=== PATIENT | male | born 1970 | race Caucasian/White ===

== ENCOUNTER 2017-12-30 01:01 | Emergency (ER) | payer BC ==
[2017-12-30] MEDS ORDERED: MORPHINE SULFATE 10 MG/ML SOL IV PRN (01:12)
[2017-12-30] MEDS ORDERED: HYDROMORPHONE 1 MG/ML SYRINGE IV ONE ×2 (01:12→04:15)
[2017-12-30] MEDS ORDERED: ASPIRIN 81 MG CHEWABLE CTB PO STA (01:12)
[2017-12-30] MEDS ORDERED: NITROGLYCERIN 0.4 MG TAB SL PRN (01:12)
[2017-12-30] MEDS ORDERED: SODIUM CHLORIDE 0.9% FLUSH 10 ML SOL IV PRN (01:12)
[2017-12-30] MEDS ORDERED: HYDROMORPHONE 1 MG/ML SYRINGE ONE ×3 (01:13→04:18)
[2017-12-30 01:20] VITALS: TEMP 97.1
[2017-12-30 01:36] LABS: BASOPHILS % (AUTO) 1 % (0-3); EOSINOPHILS % (AUTO) 1 % (0-9); HEMATOCRIT 44 % (39-53); HEMOGLOBIN 14.7 gm/dl (13.5-17.7); MEAN CORPUSCULAR HEMOGLOBIN 29.1 pg (27.0-32.0); MEAN CORPUSCULAR HGB CONC 33.5 gm/dl (32.0-36.0); MEAN CORPUSCULAR VOLUME 87 fL (80-100); MONOCYTES % (AUTO) 4.2 % (0-12); NEUTROPHILS % (AUTO) 91.5 % (37-80)
[2017-12-30] MEDS ORDERED: SODIUM CHLORIDE 0.9% 1000ML 1,000 ML IV ONE ×2 (01:51→03:56)
[2017-12-30 01:52] LABS: AMYLASE 33 IU/L (25-115); CREATINE KINASE 27 U/L (39-308); TROP I < 0.017 ng/ml (0.000-0.056)
[2017-12-30] MEDS ORDERED: POTASSIUM CHLORIDE 2 MEQ/ML SOL IV ONE ×2 (01:55→01:58)
[2017-12-30 02:05] LABS: ALBUMIN 3.4 gm/dl (3.4-5.0); BILIRUBIN,TOTAL 2.7 mg/dl (0.2-1.0); CARBON DIOXIDE 26.3 mEq/L (21-32); POTASSIUM 3.4 mMol/L (3.5-5.1); TOTAL PROTEIN 7.3 gm/dl (6.4-8.2)
[2017-12-30 02:06] LABS: CALCIUM 8.8 mg/dl (8.5-10.1); CREATININE 1.12 mg/dl (0.80-1.30)
[2017-12-30] MEDS ORDERED: HYDROMORPHONE 1 MG/ML SYRINGE IV PRN (02:32)
[2017-12-30] MEDS ORDERED: [UNRECOGNIZED DRUG - MIXTURE] IV SCH (02:45)
[2017-12-30] MEDS ORDERED: AMPICILLIN/SULBACTAM 3 GM PDS 3 GM in SODIUM CHLORIDE 0.9% 100 ML 100 ML IV SCH (03:15)
[2017-12-30] MEDS ORDERED: AMPICILLIN/SULBACTAM 3 GM PDS ONE (03:25)
[2017-12-30 04:32] VITALS: BP 155/91; PULSE 136; RESP 18; O2SAT 94
== END 2017-12-30 04:46 | disposition home or self-care (01) ==
LOC: ED 01:01
DX: R10.9 Unspecified abdominal pain (principal); R06.00 Dyspnea, unspecified; C25.9 Malignant neoplasm of pancreas, unspecified
CPT/HCPCS: 36415; 71045; 71275; 80053; 82150; 82550; 84484; 85025; 85378; 87040; 87077; 87186; 87205; 93005; 96365; 96366; 96374; 99284; 99285; J0295; J3480; Q9967; J1170

== ENCOUNTER 2018-02-01 02:09 | Emergency (ER) | payer BC ==
[2018-02-01 02:25] VITALS: TEMP 96.9
[2018-02-01] MEDS ORDERED: SODIUM CHLORIDE 0.9% 1000ML 1,000 ML IV ONE (02:34)
[2018-02-01] MEDS ORDERED: SODIUM CHLORIDE 0.9% FLUSH 10 ML SOL IV PRN (02:54)
[2018-02-01 02:56] LABS: HEMATOCRIT 38 % (39-53); HEMOGLOBIN 12.7 gm/dl (13.5-17.7); MEAN CORPUSCULAR HGB CONC 33.8 gm/dl (32.0-36.0); MEAN CORPUSCULAR VOLUME 83 fL (80-100)
[2018-02-01 03:13] LABS: ALBUMIN 3.1 gm/dl (3.4-5.0); BILIRUBIN,TOTAL 0.8 mg/dl (0.2-1.0); CALCIUM 7.9 mg/dl (8.5-10.1); CARBON DIOXIDE 27.1 mEq/L (21-32); CREATININE 1.15 mg/dl (0.80-1.30); POTASSIUM 3.8 mMol/L (3.5-5.1); TOTAL PROTEIN 6.9 gm/dl (6.4-8.2)
[2018-02-01 03:14] LABS: INR 1.16 (0.86-1.12)
[2018-02-01 03:19] LABS: BAND NEUTROPHILS % (MANUAL) 24 %; BASOPHILS % (MANUAL) 0 % (0-3); EOSINOPHILS % (MANUAL) 0 % (0-9); LYMPHOCYTES % (MANUAL) 21 % (10-50); MONOCYTES % (MANUAL) 5 % (0-12); NEUTROPHILS % (MANUAL) 50 % (37-80); NORMAL RBCS PRESENT
[2018-02-01] MEDS ORDERED: HEPARIN SODIUM 100 U/ML SOL IV ONE (04:10)
[2018-02-01 04:33] VITALS: BP 131/86; PULSE 74; RESP 16; O2SAT 99
[2018-02-01] MEDS ORDERED: HEPARIN 500 Unit PRE-FILL 100 U/ML SOL IV PRN (04:34)
== END 2018-02-01 04:25 | disposition home or self-care (01) ==
LOC: ED 02:09
DX: K92.2 Gastrointestinal hemorrhage, unspecified (principal)
CPT/HCPCS: 36591; 80053; 82272; 85007; 85027; 85610; 96365; 99284; 99285; J1644

== ENCOUNTER 2018-04-04 13:37 | Emergency (ER) | payer BC ==
[2018-04-04 14:06] VITALS: RESP 16
[2018-04-04] MEDS ORDERED: ACETAMINOPHEN 325 MG PO ONE (14:10)
[2018-04-04] MEDS: SODIUM CHLORIDE 0.9% FLUSH 10 ML SOL IV PRN ×2 (14:25→17:07)
[2018-04-04] MEDS ORDERED: ACETAMINOPHEN 325 MG ONE (14:46)
[2018-04-04 14:56] LABS: ALBUMIN 2.4 gm/dl (3.4-5.0); BILIRUBIN,TOTAL 0.5 mg/dl (0.2-1.0); CALCIUM 8.3 mg/dl (8.5-10.1); CARBON DIOXIDE 28.4 mEq/L (21-32); CREATININE 0.97 mg/dl (0.80-1.30); POTASSIUM 3.8 mMol/L (3.5-5.1); TOTAL PROTEIN 6.1 gm/dl (6.4-8.2)
[2018-04-04 14:58] LABS: BASOPHILS % (AUTO) 1 % (0-3); EOSINOPHILS % (AUTO) 0 % (0-9); HEMATOCRIT 30 % (39-53); HEMOGLOBIN 9.7 gm/dl (13.5-17.7); LYMPHOCYTES % (AUTO) 13.8 % (10-50); MEAN CORPUSCULAR HEMOGLOBIN 28.9 pg (27.0-32.0); MEAN CORPUSCULAR HGB CONC 32.1 gm/dl (32.0-36.0); MEAN CORPUSCULAR VOLUME 90 fL (80-100); MONOCYTES % (AUTO) 15.5 % (0-12); NEUTROPHILS % (AUTO) 69.3 % (37-80)
[2018-04-04 14:59] LABS: LACTIC ACID 1.1 mMol/L (0.0-2.0)
[2018-04-04 15:17] VITALS: O2SAT 99
[2018-04-04 15:31] VITALS: BP 109/75; PULSE 96
[2018-04-04 16:05] LABS: APPEARANCE,URINE Clear; BILIRUBIN,URINE NEGATIVE (NEGATIVE); COLOR,URINE Yellow; GLUCOSE, URINE (UA) NEGATIVE (NEGATIVE); KETONES,URINE NEGATIVE (NEGATIVE); LEUKOCYTE ESTERASE ,URINE NEGATIVE (NEGATIVE); NITRATE,URINE NEGATIVE (NEGATIVE); OCCULT BLOOD,URINE NEGATIVE (NEG-TRACE); PH,URINE 7.5; UROBILINOGEN,URINE 0.2 (0.2-1.0 EU)
[2018-04-04 16:26] VITALS: TEMP 100.8
[2018-04-04] MEDS ORDERED: HEPARIN 500 Unit PRE-FILL 100 U/ML SOL IV PRN (16:32)
[2018-04-04 16:45] LABS: CRYSTALS NEGATIVE (0-3 AVE/HPF); EPITHELIAL CELLS NEGATIVE (SQUAMOUS); RBC,URINE NEGATIVE (0-3AV/HPF); WBC,URINE NEGATIVE (0-5AV/HPF)
[2018-04-04 16:46] LABS: BACTERIA TRACE (< 1+)
[2018-04-04] MEDS ORDERED: HEPARIN SODIUM 100 U/ML SOL IV ONE (16:59)
[2018-04-04] MEDS ORDERED: HEPARIN 500 Unit PRE-FILL 100 U/ML SOL IV ONE (17:02)
== END 2018-04-04 17:17 | disposition home or self-care (01) ==
LOC: ED 13:37 → SUPCPDRO 13:37 → ED 17:17
DX: R50.9 Fever, unspecified (principal)
CPT/HCPCS: 36415; 36591; 71046; 80053; 81001; 83735; 85025; 87040; 99284; 99291; J1644

== ENCOUNTER 2018-06-06 10:29 | Emergency (ER) | payer BC ==
[2018-06-06 10:39] VITALS: TEMP 97.3
[2018-06-06] MEDS ORDERED: SODIUM CHLORIDE 0.9% 1000 ML SOL IV SCH (11:00)
[2018-06-06] MEDS ORDERED: HEPARIN 500 Unit PRE-FILL 100 U/ML SOL IV PRN (11:13)
[2018-06-06 11:16] LABS: HEMATOCRIT 34 % (39-53); MEAN CORPUSCULAR HGB CONC 31.9 gm/dl (32.0-36.0); MEAN CORPUSCULAR VOLUME 97 fL (80-100)
[2018-06-06 11:19] LABS: CALCIUM 8.2 mg/dl (8.5-10.1); CREATININE 1.02 mg/dl (0.80-1.30); POTASSIUM 3.5 mMol/L (3.5-5.1)
[2018-06-06 11:22] LABS: LACTIC ACID 1.2 mMol/L (0.0-2.0)
[2018-06-06 11:25] LABS: CARBON DIOXIDE 24.6 mEq/L (21-32)
[2018-06-06 11:44] LABS: BAND NEUTROPHILS % (MANUAL) 14 %; BASOPHILS % (MANUAL) 0 % (0-3); EOSINOPHILS % (MANUAL) 0 % (0-9); LYMPHOCYTES % (MANUAL) 7 % (10-50); MONOCYTES % (MANUAL) 1 % (0-12); NEUTROPHILS % (MANUAL) 78 % (37-80)
[2018-06-06 11:45] LABS: POIKILOCYTOSIS SLIGHT AMT; TARGET CELLS PRESENT
[2018-06-06 12:05] LABS: INFLUENZA A NEGATIVE (NEGATIVE); INFLUENZA B NEGATIVE (NEGATIVE)
[2018-06-06 12:44] LABS: APPEARANCE,URINE Clear; BILIRUBIN,URINE 1+ (NEGATIVE); COLOR,URINE Dark yellow; GLUCOSE, URINE (UA) NEGATIVE (NEGATIVE); KETONES,URINE NEGATIVE (NEGATIVE); LEUKOCYTE ESTERASE ,URINE NEGATIVE (NEGATIVE); NITRATE,URINE NEGATIVE (NEGATIVE); OCCULT BLOOD,URINE NEGATIVE (NEG-TRACE)
[2018-06-06 12:51] LABS: BACTERIA 1+ (< 1+); CRYSTALS NEGATIVE (0-3 AVE/HPF); ICTOTEST,URINE NEGATIVE (NEGATIVE); RBC,URINE 0-2 (0-3AV/HPF)
[2018-06-06] MEDS ORDERED: HEPARIN SODIUM 100 U/ML SOL IV ONE (14:05)
[2018-06-06 14:27] VITALS: RESP 20
[2018-06-06 14:28] VITALS: BP 117/87; PULSE 75; O2SAT 94
== END 2018-06-06 14:12 | disposition home or self-care (01) ==
LOC: ED 10:29
DX: R50.9 Fever, unspecified (principal); C25.9 Malignant neoplasm of pancreas, unspecified
CPT/HCPCS: 36415; 71046; 80048; 81001; 85007; 85027; 87040; 87804; 96365; 99284; 99291; J1644

== ENCOUNTER 2019-01-19 20:39 | Emergency (ER) | payer BC | END 2019-01-19 22:33 | disposition home or self-care (01) | LOC: ED 20:39 ==